=== PATIENT | female | born 1990 | race Caucasian/White ===

== ENCOUNTER 2018-08-03 12:30 | Emergency (ER) | payer OTHER ==
[2018-08-03 12:35] VITALS: BP 163/118; Ht 165.1 cm
== END 2018-08-03 13:18 | disposition left against medical advice (07) ==
LOC: ED 12:30
DX: Z53.21 Procedure and treatment not carried out due to patient leaving prior to being seen by health care provider (principal)

== ENCOUNTER 2020-05-13 23:36 | Emergency (ER) | payer OTHER ==
[~2020-05-13] VITALS: Ht 165.1 cm; Wt 113.4 kg
[2020-05-14 00:05] VITALS: Ht 165.1 cm; Wt 113.4 kg
[2020-05-14 03:41] VITALS: BP 158/103
== END 2020-05-14 03:41 | disposition home or self-care (01) ==
LOC: ED 23:36
DX: S16.1XXA Strain of muscle, fascia and tendon at neck level, initial encounter (principal); S29.012A Strain of muscle and tendon of back wall of thorax, initial encounter; S39.012A Strain of muscle, fascia and tendon of lower back, initial encounter; S69.91XA Unspecified injury of right wrist, hand and finger(s), initial encounter; V49.9XXA Car occupant (driver) (passenger) injured in unspecified traffic accident, initial encounter; Y93.I9 Activity, other involving external motion; Y92.413 State road as the place of occurrence of the external cause; Y99.8 Other external cause status
CPT/HCPCS: A4570; J1885; Q0092